=== PATIENT | female | born 1995 | race Asian ===

== ENCOUNTER 2016-07-05 11:35 | Emergency (ER) | payer OTHER ==
[2016-07-05 11:43] VITALS: BP 117/64; PULSE 75; TEMP 97.8; BMI 22.6
[2016-07-05 14:55] LABS: BASOPHIL 0.3 % (0-2.0); EOSINOPHIL 2.7 % (0-4.5); MCH 28.7 pg (25.7-33.7); MCHC 33.3 g/dl (32.0-36.0); MEAN CELL VOLUME 86.1 fl (80-96); MEAN PLT VOLUME 9.2 fl (7.5-11.1); NEUTROPHILS 62.1 % (42.8-82.8); PLATELET COUNT 248 K/MM3 (134-434); RDW 13.7 % (11.6-15.6)
[2016-07-05 15:17] LABS: URINE APPEARANCE CLEAR; URINE BILIRUBIN NEGATIVE (NEGATIVE); URINE BLOOD NEGATIVE (NEGATIVE); URINE COLOR LTYELLOW; URINE GLUCOSE (UA) NEGATIVE (NEGATIVE); URINE KETONE NEGATIVE (NEGATIVE); URINE LEUK ESTERASE NEGATIVE (NEGATIVE); URINE NITRITE NEGATIVE (NEGATIVE); URINE PROTEIN NEGATIVE (NEGATIVE); URINE UROBILINOGEN NEGATIVE E.U./dl (0.2-1.0)
--- NOTE | 2016-07-05 16:17 | PDOC ---
History of Present Illness <Nayla Espino - Last Filed: 07/05/16 20:39> - General History Source: Patient Exam Limitations: No Limitations - History of Present Illness Travel History: No Initial Comments: 07/05/16 14:09 21-year-old female presents to the ED with vaginal bleeding since yesterday. Patient states had her menses approximately 3 weeks ago and had a cervical biopsy done secondary to HPV which she states had minimal bleeding postoperatively and now concerned with the irregular bleeding and suprapubic cramping. Patient states no vaginal discharge prior to procedure, urinary complaints, back pain, abdominal distention, or fever. Patient states called her FINISHING RANGE SUPERVISOR who recommended she come to the ER since she states this is unlikely a postoperative complication since the procedure was 2 weeks ago. Timing/Duration: reports: constant Quality: reports: mild, cramping Abdominal Pain Onset Location: reports: suprapubic Pain Radiation: reports: no radiation Activities at Onset: reports: none Aggravating Factors: improves with: None Alleviating Factors: improves with: None <Brittany Lee - Last Filed: 07/07/16 07:35> - General Chief Complaint: Vaginal Bleeding Stated Complaint: VAGINAL BLEEDING Time Seen by Provider: 07/05/16 13:41 Past History <Nayla Espino - Last Filed: 07/05/16 20:39> - Past Medical History Suicide Attempt (Hx): No Other medical history: hpv - Reproductive History Is Patient Now?: No - Psycho/Social/Smoking Cessation Hx Anxiety: No Suicidal Ideation: No Smoking History: Never smoked Have you smoked in the past 12 months: No Information on smoking cessation initiated: No Hx Alcohol Use: No Drug/Substance Use Hx: No Substance Use Type: None Patient Lives Alone: No Lives with/in: parents <Brittany Lee - Last Filed: 07/07/16 07:35> - Past Medical History Allergies/Adverse Reactions: Allergies Allergy/AdvReac Type Severity Reaction Status Date / Time No Known Allergies Allergy Verified 07/05/16 11:39 Home Medications: Ambulatory Orders NK [No Known Home Medication] 01/04/16 Review of Systems - Review of Systems Able to Perform ROS?: Yes Constitutional: No: Symptoms Reported HEENTM: No: Symptoms Reported Respiratory: No: Symptoms reported Cardiac (ROS): No: Symptoms Reported ABD/GI: Yes: Abdominal cramping : Yes: Discharge (bloody) Musculoskeletal: No: Back Pain Integumentary: No: Symptoms Reported Neurological: No: Symptoms reported Endocrine: No: Symptoms Reported Hematologic/Lymphatic: No: Symptoms Reported <Brittany Lee - Last Filed: 07/07/16 07:35> *Physical Exam - Vital Signs Last Vital Signs Temp Pulse Resp BP Pulse Ox 97.8 F 75 18 117/64 100 07/05/16 11:39 07/05/16 11:39 07/05/16 11:39 07/05/16 11:39 07/05/16 11:39 <Nayla Espino - Last Filed: 07/05/16 20:39> - Vital Signs Last Vital Signs Temp Pulse Resp BP Pulse Ox 97.8 F 75 18 117/64 100 07/05/16 11:39 07/05/16 11:39 07/05/16 11:39 07/05/16 11:39 07/05/16 11:39 - Physical Exam General Appearance: Yes: Nourished, Appropriately Dressed. No: Apparent Distress HEENT: negative: Pale Conjunctivae Female Pelvic Exam: positive: cervical os closed (smooth pink cervix), vaginal bleeding (pinkish red discharge). negative: CMT, adnexal tenderness Gastrointestinal/Abdominal: positive: Soft, Tenderness (mild midsuprapubic) Musculoskeletal: negative: CVA Tenderness Extremity: positive: Normal Capillary Refill Integumentary: positive: Normal Color, Warm, Moist Neurologic: positive: Motor Strength 5/5 (ambulatory) <RosaBrittany - Last Filed: 07/07/16 07:35> ED Treatment Course - LABORATORY CBC & Chemistry Diagram: 07/05/16 14:45 - ADDITIONAL ORDERS Additional order review: Laboratory Results 07/05/16 07/05/16 07/05/16 16:08 16:08 15:00 Beta HCG, Quant 558.2 Urine Color Ltyellow Urine Appearance Clear Urine pH 8.0 D Ur Specific [place] 1.020 Urine Protein Negative Urine Glucose (UA) Negative Urine Ketones Negative Urine Blood Negative Urine Nitrite Negative Urine Bilirubin Negative Urine Urobilinogen Negative Ur Leukocyte Esterase Negative Urine HCG, Qual Positive Blood Type B POSITIVE Antibody Screen Negative 07/05/16 14:45 RBC 4.72 MCV 86.1 MCHC 33.3 RDW 13.7 MPV 9.2 Neutrophils % 62.1 Lymphocytes % 24.7 Monocytes % 10.2 Eosinophils % 2.7 Basophils % 0.3 <Nayla Espino - Last Filed: 07/05/16 20:39> - LABORATORY CBC & Chemistry Diagram: 07/05/16 14:45 - ADDITIONAL ORDERS Additional order review: Laboratory Results 07/05/16 15:00 Urine Color Ltyellow Urine Appearance Clear Urine pH 8.0 D Ur Specific [place] 1.020 Urine Protein Negative Urine Glucose (UA) Negative Urine Ketones Negative Urine Blood Negative Urine Nitrite Negative Urine Bilirubin Negative Urine Urobilinogen Negative Ur Leukocyte Esterase Negative Urine HCG, Qual Positive 07/05/16 14:45 RBC 4.72 MCV 86.1 MCHC 33.3 RDW 13.7 MPV 9.2 Neutrophils % 62.1 Lymphocytes % 24.7 Monocytes % 10.2 Eosinophils % 2.7 Basophils % 0.3 <Brittany Lee - Last Filed: 07/07/16 07:35> Medical Decision Making - Medical Decision Making 07/05/16 14:21 Patient with vaginal bleeding and mid suprapubic pain since yesterday. Patient states pain and bleeding is not like her menses denies any fever, nausea, abdominal distention, or dysuria. Patient does have history of HPV, herpes and is sexually active. Patient ordered for labs including chlamydia and gonorrhea and urine . 07/05/16 16:54 Laboratory Tests 07/05/16 07/05/16 07/05/16 14:45 15:00 15:00 WBC 8.0 Hgb 13.6 Hct 40.7 Neutrophils % 62.1 Urine Ketones Negative Urine Nitrite Negative Ur Leukocyte Esterase Negative Urine HCG, Qual Positive Chlamydia Competition Pending N. gonorrhoeae (AKOSUA) Pending Pt ordered for type ad screen along with beta hcg 07/05/16 18:10 Called the lab to find out where the beta hCG is and states unable to find the specimen and requesting a re-send of the yellow top. Patient will be sent to ultrasound in the meantime 07/05/16 19:06 If ultrasound is negative patient does need to return here in 2 days for repeat beta hCG since her OBGYN is on vacation. If ultrasound does show significant findings we will contact robotic maintenance technician prison guard supervisor since her FINISHING RANGE SUPERVISOR Dr. Godwin is away. Patient made aware of plan and agrees. <Brittany Lee - Last Filed: 07/07/16 07:35> *DC/Admit/Observation/Transfer - Discharge Dispostion Admit: No <Nayla Espino - Last Filed: 07/05/16 20:39> <Brittany Lee - Last Filed: 07/07/16 07:35> Diagnosis at time of Disposition: Ovarian cyst Qualifiers: Laterality: bilateral Qualified Code(s): N83.20 - Unspecified ovarian cysts Abdominal pain Qualifiers: Abdominal location: lower abdomen, unspecified Qualified Code(s): R10.30 - Lower abdominal pain, unspecified - Discharge Dispostion Disposition: HOME Condition at time of disposition: Stable - Referrals Referrals: Magdalena Torres MD [Primary Care Provider] - - Patient Instructions Printed Discharge Instructions: DI for Ovarian Cyst, Human Chorionic Gonadotropin Additional Instructions: FOLLOW UP WITH FINISHING RANGE SUPERVISOR EARLY THIS WEEK IF POSSIBLE, OR RETURN TO THIS ER FOR BLOOD DRAW (BETA HCG) TO DETERMINE WHETHER LEVELS ARE TRENDING UP OR DOWN. RETURN IF WORSENING OF SYMPTOMS FOR FURTHER EVALUATION. Print Language: CROATIAN
--- NOTE | 2016-07-05 16:35 | PDOC ---
*Physical Exam - Vital Signs Last Vital Signs Temp Pulse Resp BP Pulse Ox 97.8 F 75 18 117/64 100 07/05/16 11:39 07/05/16 11:39 07/05/16 11:39 07/05/16 11:39 07/05/16 11:39 ED Treatment Course - LABORATORY CBC & Chemistry Diagram: 07/05/16 14:45 - ADDITIONAL ORDERS Additional order review: Laboratory Results 07/05/16 15:00 Urine Color Ltyellow Urine Appearance Clear Urine pH 8.0 D Ur Specific [place] 1.020 Urine Protein Negative Urine Glucose (UA) Negative Urine Ketones Negative Urine Blood Negative Urine Nitrite Negative Urine Bilirubin Negative Urine Urobilinogen Negative Ur Leukocyte Esterase Negative Urine HCG, Qual Positive 07/05/16 14:45 RBC 4.72 MCV 86.1 MCHC 33.3 RDW 13.7 MPV 9.2 Neutrophils % 62.1 Lymphocytes % 24.7 Monocytes % 10.2 Eosinophils % 2.7 Basophils % 0.3 Medical Decision Making - Medical Decision Making 07/05/16 16:35 Pt seen by Midlevel Provider under my direct supervision Ancillary studies reviewed I agree with plan as outlined by Midlevel Provider *DC/Admit/Observation/Transfer Diagnosis at time of Disposition: Ovarian cyst, Abdominal pain - Discharge Dispostion Disposition: HOME Condition at time of disposition: Stable - Referrals Referrals: Magdalena Torres MD [Primary Care Provider] - - Patient Instructions Printed Discharge Instructions: Human Chorionic Gonadotropin, DI for Ovarian Cyst Additional Instructions: FOLLOW UP WITH MACHINE OPERATOR ASSISTANT EARLY THIS WEEK IF POSSIBLE, OR RETURN TO THIS ER FOR BLOOD DRAW (BETA HCG) TO DETERMINE WHETHER LEVELS ARE TRENDING UP OR DOWN. RETURN IF WORSENING OF SYMPTOMS FOR FURTHER EVALUATION. Print Language: ROMANIAN
== END 2016-07-05 21:12 | disposition home or self-care (01) ==
LOC: JER 11:35
DX: N83.292 Other ovarian cyst, left side (principal); N83.291 Other ovarian cyst, right side
CPT/HCPCS: 36415; 76801-TC; 81003; 84702; 84703; 85025; 86850; 86900; 86901; 87081; 87491; 87591; 99284-25

== ENCOUNTER 2016-08-02 19:51 | Emergency (ER) | payer OTHER ==
--- NOTE | 2016-08-02 19:55 | PDOC ---
Rapid Medical Evaluation Time Seen by Provider: 08/02/16 19:54 Medical Evaluation: Allergies Allergy/AdvReac Type Severity Reaction Status Date / Time No Known Allergies Allergy Verified 07/05/16 11:39 08/02/16 19:55 21 year old female seen here 07/05 with abdominal pain and vaginal bleeding, found to have bhcg 552; u/s showed left ovarian complex cyst vs corpus luteum cyst and thickened endometrial strip. Patient was instructed to return in 2 days for repeat beta but did not. Has not had a period and wants to know if she is still . -Beta hcg -To FT for further evaluation
[2016-08-02 19:59] VITALS: BP 107/67; PULSE 79; TEMP 98.1; BMI 21.9
--- NOTE | 2016-08-02 20:40 | PDOC ---
History of Present Illness - General Chief Complaint: Revisit, Lab Variance Stated Complaint: REVISIT Time Seen by Provider: 08/02/16 19:54 History Source: Patient Exam Limitations: No Limitations - History of Present Illness Initial Comments: 08/02/16 20:35 Chief complaint: Here to find out if she is still Of present illness: Patient is a 21-year-old female with a history of herpes genital and HPV here to find out whether or not she continues to be . Patient was seen here on 07/05/16 due to having vaginal bleeding since the day before. Patient also had had a biopsy 2 weeks prior to that date of her cervix due to having HPV and abnormal cells on cervix. Patient did not follow-up with CRYSTAL MOUNTER. Patient denies having any further vaginal bleeding has not had her menstrual cycle since. Patient reports that she has not been sexually active since prior to coming here on 07/05/2016. Beta hCG on 07/05/16 was 558.2. Patient denies any vaginal discharge or any pelvic pain. ultrasound that showed the left ovary complex cyst versus corpus luteum cysts with thickened endometrial stripe on 07/05/16. 08/02/16 20:37 08/02/16 20:41 Past History - Past Medical History Allergies/Adverse Reactions: Allergies Allergy/AdvReac Type Severity Reaction Status Date / Time No Known Allergies Allergy Verified 08/02/16 19:58 Home Medications: Ambulatory Orders NK [No Known Home Medication] 01/04/16 Suicide Attempt (Hx): No Other medical history: herpes genitalia, HPV cervical - Psycho/Social/Smoking Cessation Hx Anxiety: No Suicidal Ideation: No Smoking History: Never smoked Have you smoked in the past 12 months: No Information on smoking cessation initiated: No Hx Alcohol Use: No Drug/Substance Use Hx: No Substance Use Type: None Review of Systems - Review of Systems Able to Perform ROS?: Yes Constitutional: No: Symptoms Reported HEENTM: No: Symptoms Reported Respiratory: No: Symptoms reported Cardiac (ROS): No: Symptoms Reported ABD/GI: No: Symptoms Reported : Yes: Other (+ test on 07/05/16 with vaginal bleeding no further bleeding, no discharge, ) Musculoskeletal: No: Symptoms Reported Integumentary: No: Symptoms Reported Neurological: No: Symptoms reported *Physical Exam - Vital Signs Last Vital Signs Temp Pulse Resp BP Pulse Ox 98.1 F 79 17 107/67 100 08/02/16 19:56 08/02/16 19:56 08/02/16 19:56 08/02/16 19:56 08/02/16 19:56 - Physical Exam Comments: 08/02/16 20:40 General Appearance: Yes: Appropriately Dressed Respiratory/Chest: positive: Lungs Clear, Normal Breath Sounds. negative: Chest Tender, Respiratory Distress Cardiovascular: positive: Regular Rhythm, Regular Rate, S1, S2 Gastrointestinal/Abdominal: positive: Normal Bowel Sounds, Soft. negative: Tender, Organomegaly, Increased Bowel Sounds, Decreased BS, Protuberent, Distended, Guarding, Rebound, Tenderness, Hernia, Mass, Hepatomegaly, Spleenomegaly Integumentary: positive: Normal Color Neurologic: positive: Alert, Normal Response, Responsive Medical Decision Making - Medical Decision Making 08/02/16 20:38 Patient is a 21-year-old female with a history of herpes genital and HPV here to find out whether or not she continues to be . Patient was seen here on 07/05/16 due to having vaginal bleeding since the day before. Patient also had had a biopsy 2 weeks prior to that date of her cervix due to having HPV and abnormal cells on cervix. Patient did not follow-up with CRYSTAL MOUNTER. Patient denies having any further vaginal bleeding has not had her menstrual cycle since. Patient reports that she has not been sexually active since prior to coming here on 07/05/2016. Beta hCG on 07/05/16 was 558.2. Patient denies any vaginal discharge or any pelvic pain. 08/02/16 20 r/o continued pLAN beta hcg Laboratory Tests 08/02/16 20:00 Beta HCG, Quant < 1.0 follow up with rendering equipment tender as soon as possible *DC/Admit/Observation/Transfer Diagnosis at time of Disposition: Negative test - Discharge Dispostion Disposition: HOME Condition at time of disposition: Stable - Patient Instructions Additional Instructions: Must follow up with your senior medical billing specialist as soon as possible for further evaluation and to discuss contraception Patient voiced understanding of discharge instructions and all questions were answered
== END 2016-08-02 21:23 | disposition home or self-care (01) ==
LOC: JERFT 19:51
DX: Z32.02 Encounter for pregnancy test, result negative (principal)
CPT/HCPCS: 36415; 84702; 99281-25

== ENCOUNTER 2016-12-07 14:51 | Emergency (ER) | payer OTHER ==
[2016-12-07 15:05] VITALS: BMI 22.4
--- NOTE | 2016-12-07 15:34 | PDOC ---
History of Present Illness - General Chief Complaint: Pain Stated Complaint: ABD PAIN Time Seen by Provider: 12/07/16 15:33 History Source: Patient Exam Limitations: No Limitations - History of Present Illness Initial Comments: 12/07/16 15:34 Patient is an otherwise healthy 21 year old female who was referred to the ED by her PCP for 5 days of RUQ/RLQ abdominal pain and diarrhea. The pain started abruptly 5 days ago while patient was vacationing in [place] and has been sharp, crampy and constant, 7-8/10 at the peak and relieved with Advil. Two days ago it was associated with a high subjective fever for one night. Otherwise patient denies fever, recent illnesses, sick contacts, nausea, vomiting and dysurea. Endorses feeling bloated and a loss of appetite. Endorses eating oysters and raw seafood and significant EtOH consumption recently. Patient is sexually active with one partner. LMP was two weeks ago and unchanged. PCP: Dr. Balbuena Past History - Past Medical History Allergies/Adverse Reactions: Allergies Allergy/AdvReac Type Severity Reaction Status Date / Time No Known Allergies Allergy Verified 12/07/16 15:05 Home Medications: Ambulatory Orders NK [No Known Home Medication] 01/04/16 Suicide Attempt (Hx): No Other medical history: NONE - Psycho/Social/Smoking Cessation Hx Anxiety: No Suicidal Ideation: No Smoking History: Current every day smoker Have you smoked in the past 12 months: No Number of Cigarettes Smoked Daily: 2 Information on smoking cessation initiated: Yes 'Breaking Loose' booklet given: 12/07/16 Hx Alcohol Use: Yes (SOCIAL) Drug/Substance Use Hx: No Substance Use Type: None Review of Systems - Review of Systems Able to Perform ROS?: Yes Comments:: 12/08/16 06:16 Endorses 1 night of subjective fever two days ago Denies chills Denies sore throat, cough and shortness of breath Denies chest pain and palpitations Endorses abdominal pain in the RUQ/RLQ>suprapubic/Epigastric Endorses brown watery diarrhea with no blood or mucus Denies Nausea and vomiting Denies dysurea and changes in urine quality Denies MS pain, joint pain, skin changes, rashes, bruising Is the patient limited Citizen Of [place] proficient: No *Physical Exam - Vital Signs Last Vital Signs Temp Pulse Resp BP Pulse Ox 98.4 F 89 20 113/62 100 07/26/17 15:03 12/07/16 15:03 12/07/16 15:03 12/07/16 15:03 12/07/16 15:03 - Physical Exam General Appearance: Yes: Nourished, Appropriately Dressed. No: Apparent Distress HEENT: positive: Other (NCAT, PERRLA, EOMI, non icterus, non erythamatous moist oral mucosa, no congestion) Neck: positive: Supple. negative: Tender, Lymphadenopathy (R), Lymphadenopathy (L) Respiratory/Chest: positive: Lungs Clear, Normal Breath Sounds. negative: Respiratory Distress Cardiovascular: positive: Regular Rate. negative: Regular Rhythm Gastrointestinal/Abdominal: positive: Normal Bowel Sounds, Tender (RUQ>RLQ> Epigastric>suprapubic), Flat, Soft, Other (Negative rovsig, negative brandt). negative: Distended, Guarding, Rebound, Mass Musculoskeletal: positive: CVA Tenderness (R). negative: CVA Tenderness (L) Extremity: positive: Normal Capillary Refill, Normal Inspection, Normal Range of Motion Integumentary: positive: Normal Color, Dry, Warm. negative: Jaundice, Petechiae , Rash, Ecchymosis Neurologic: positive: bank teller II-XII NML intact, Fully Oriented, Alert, Normal Mood/ Affect, Motor Strength 5/5 ED Treatment Course - LABORATORY CBC & Chemistry Diagram: 12/07/16 16:45 12/07/16 16:45 Medical Decision Making - Medical Decision Making 12/07/16 15:34 patient is a 21 year old female with 5 days of right sided abdominal pain. Patient also has history of palpitations and irregular heart auscultation Ddx includes but is not limited to appendicitis, biliary disease, pancreatitis, hepatitis, ectopic , PID, ovarian cyst, UTI, colitis. HCG CBC, CMP, Lipase, UA Chlamydia/Gonorrhea PCR amp Consider CT abdomen and pelvis based on results Monitor and reevaluate 12/07/16 17:22 CBC WBC 11.3 K/mm3 (4.0-10.0) H D 12/07/16 16:45 RBC 4.55 M/mm3 (3.60-5.2) 12/07/16 16:45 Hgb 13.1 GM/dL (10.7-15.3) 12/07/16 16:45 Hct 39.5 % (32.4-45.2) 12/07/16 16:45 MCV 86.8 fl (80-96) 12/07/16 16:45 MCH 28.7 pg (25.7-33.7) 12/07/16 16:45 MCHC 33.1 g/dl (32.0-36.0) 12/07/16 16:45 RDW 12.8 % (11.6-15.6) 12/07/16 16:45 Plt Count 359 K/MM3 (134-434) D 12/07/16 16:45 MPV 8.5 fl (7.5-11.1) 12/07/16 16:45 Neutrophils % 79.3 % (42.8-82.8) D 12/07/16 16:45 Lymphocytes % 10.4 % (8-40) D 12/07/16 16:45 Monocytes % 9.5 % (3.8-10.2) 12/07/16 16:45 Eosinophils % 0.5 % (0-4.5) D 12/07/16 16:45 Basophils % 0.3 % (0-2.0) 12/07/16 16:45 Mild leukocytosis, concerning in context of history for acute appendicitis HCG negative rules out ectopic, clears patient for CT 12/07/16 18:53 CMP Sodium 137 mmol/L (136-145) 12/07/16 16:45 Potassium 4.1 mmol/L (3.5-5.1) 12/07/16 16:45 Chloride 102 mmol/L (98-107) 12/07/16 16:45 Carbon Dioxide 31 mmol/L (21-32) 12/07/16 16:45 Anion Gap 4 (8-16) L 12/07/16 16:45 BUN 10 mg/dL (7-18) 12/07/16 16:45 Creatinine 0.7 mg/dL (0.55-1.02) 12/07/16 16:45 Creat Clearance w eGFR > 60 (>60) 12/07/16 16:45 Random Glucose 80 mg/dL (74-106) 12/07/16 16:45 Calcium 9.2 mg/dL (8.5-10.1) 12/07/16 16:45 Total Bilirubin 0.2 mg/dL (0.2-1.0) 12/07/16 16:45 AST 13 U/L (15-37) L 12/07/16 16:45 ALT 20 U/L (12-78) 12/07/16 16:45 Alkaline Phosphatase 65 U/L (45-117) 12/07/16 16:45 Total Protein 7.3 g/dl (6.4-8.2) 12/07/16 16:45 Albumin 3.4 g/dl (3.4-5.0) 12/07/16 16:45 Lipase 134 U/L (73-393) 12/07/16 16:45 non concerning CMP, LFT wnl Urine Test Results Urine Color Yellow 12/07/16 16:19 Urine Appearance Clear 12/07/16 16:19 Urine pH 7.0 (5.0-8.0) 12/07/16 16:19 Urine Protein Negative (NEGATIVE) 12/07/16 16:19 Urine Glucose (UA) Negative (NEGATIVE) 12/07/16 16:19 Urine Ketones Negative (NEGATIVE) 12/07/16 16:19 Urine Blood Negative (NEGATIVE) 12/07/16 16:19 Urine Nitrite Negative (NEGATIVE) 12/07/16 16:19 Urine Bilirubin Negative (NEGATIVE) 12/07/16 16:19 Ur Leukocyte Esterase Trace (NEGATIVE) 12/07/16 16:19 Trace LE Patient completed PO contrast, awaiting CT 12/07/16 18:59 Signed out patient to Dr. Lesa Cohen *DC/Admit/Observation/Transfer Diagnosis at time of Disposition: Ovarian cyst Abdominal pain Qualifiers: Abdominal location: unspecified location Qualified Code(s): R10.9 - Unspecified abdominal pain - Discharge Dispostion Disposition: HOME Condition at time of disposition: Stable - Referrals Referrals: Dodie Balbuena MD [Primary Care Provider] - - Patient Instructions Printed Discharge Instructions: DI for Ovarian Cyst Additional Instructions: You were seen in the ER today for abdominal pain. You had a slightly elevated white blood cell count, but this could mean one of many things including a stress response to the pain you have had for the past few days. Your lab work was otherwise unconcerning, and you did not have a bladder infection. We took some swabs from your pelvic exam and will call you if there are any abnormal results (they take time to come back). We did a ultrasound and a CT of your abdomen and pelvis, and there is a small cyst on your right ovary, but otherwise the study appeared normal. Please take ibuprofen or another NSAID for the pain, and follow up with your regular provider or return to the ER for any further emergency concerns such as fever which will not go away with Tylenol, severe abdominal pain, or new vaginal discharge.
--- NOTE | 2016-12-07 15:53 | PDOC ---
Attending Attestation - Resident Resident Name: Adelfo Mishra - ED Attending Attestation I have performed the following: I have examined & evaluated the patient, The case was reviewed & discussed with the resident, I agree w/resident's findings & plan, Exceptions are as noted - HPI HPI: 21 yo F no significant past medical history presents with RUQ/RLQ abdominal pain and diarrhea. She states that the pain started 5 days ago while she was in [place], but has been progressively worsening since that time. She denies fever, chills, N/V, dysuria. She has had multiple episodes of watery stools. She states that she ate raw shellfish and seafood on her trip. - Physicial Exam PE: GENERAL: Awake, alert, and fully oriented, in no acute distress HEAD: No signs of trauma EYES: PERRLA, EOMI, sclera anicteric, conjunctiva clear ENT: Auricles normal inspection, hearing grossly normal, nares patent, oropharynx clear without exudates. Moist mucosa NECK: Normal ROM, supple, no lymphadenopathy, JVD, or masses LUNGS: Breath sounds equal, clear to auscultation bilaterally. No wheezes, and no crackles HEART: Regular rate and rhythm, normal S1 and S2, no murmurs, rubs or gallops ABDOMEN: Soft, +RUQ/RLQ tenderness with guarding, normoactive bowel sounds. No rebound. No masses EXTREMITIES: Normal range of motion, no edema. No clubbing or cyanosis. No cords, erythema, or tenderness NEUROLOGICAL: Cranial nerves II through XII grossly intact. Normal speech, normal gait SKIN: Warm, Dry, normal turgor, no rashes or lesions noted. - Medical Decision Making Patient with RUQ/RLQ tenderness. DDx includes UTI, kidney stone - although no urinary symptoms, making these less likely. More likely to be appendicitis vs jonathan. Exam with tenderness in multiple locations, making it more complicated to evaluate. Will obtain CT a/p to further evaluate.
[2016-12-07 16:53] LABS: BASOPHIL 0.3 % (0-2.0); EOSINOPHIL 0.5 % (0-4.5); MCH 28.7 pg (25.7-33.7); MCHC 33.1 g/dl (32.0-36.0); MEAN CELL VOLUME 86.8 fl (80-96); MEAN PLT VOLUME 8.5 fl (7.5-11.1); NEUTROPHILS 79.3 % (42.8-82.8); PLATELET COUNT 359 K/MM3 (134-434); RDW 12.8 % (11.6-15.6); WHITE BLOOD COUNT 11.3 K/mm3 (4.0-10.0)
[2016-12-07 17:17] LABS: ALBUMIN 3.4 g/dl (3.4-5.0); ALK PHOS 65 U/L (45-117); ANION GAP 4 (8-16); BILIRUBIN,TOTAL 0.2 mg/dL (0.2-1.0); CALCIUM 9.2 mg/dL (8.5-10.1); CO2 31 mmol/L (21-32); CREATININE 0.7 mg/dL (0.55-1.02); GLUCOSE,RANDOM 80 mg/dL (74-106); SGOT/AST 13 U/L (15-37); SGPT/ALT 20 U/L (12-78); TOT PROT 7.3 g/dl (6.4-8.2)
[2016-12-07 17:22] LABS: URINE APPEARANCE CLEAR; URINE BILIRUBIN NEGATIVE (NEGATIVE); URINE BLOOD NEGATIVE (NEGATIVE); URINE COLOR YELLOW; URINE GLUCOSE (UA) NEGATIVE (NEGATIVE); URINE KETONE NEGATIVE (NEGATIVE); URINE LEUK ESTERASE TRACE (NEGATIVE); URINE NITRITE NEGATIVE (NEGATIVE); URINE PROTEIN NEGATIVE (NEGATIVE)
[2016-12-07 18:55] LABS: URINE MUCUS RARE; URINE RBC 1 /hpf (0-3); URINE WBC 6 /hpf (3-5)
--- NOTE | 2016-12-07 19:09 | PDOC ---
*Physical Exam - Vital Signs Last Vital Signs Temp Pulse Resp BP Pulse Ox 98.4 F 89 20 113/62 100 12/07/16 15:03 12/07/16 15:03 12/07/16 15:03 12/07/16 15:03 12/07/16 15:03 ED Treatment Course - LABORATORY CBC & Chemistry Diagram: 12/07/16 16:45 12/07/16 16:45 - ADDITIONAL ORDERS Additional order review: Laboratory Results 12/07/16 12/07/16 12/07/16 16:45 16:45 16:45 Sodium 137 Potassium 4.1 Chloride 102 Carbon Dioxide 31 Anion Gap 4 L BUN 10 Creatinine 0.7 Creat Clearance w eGFR > 60 Random Glucose 80 Calcium 9.2 Total Bilirubin 0.2 AST 13 L ALT 20 Alkaline Phosphatase 65 Total Protein 7.3 Albumin 3.4 Lipase 134 Urine Color Urine Appearance Urine pH Urine Protein Urine Glucose (UA) Urine Ketones Urine Blood Urine Nitrite Urine Bilirubin Urine Urobilinogen Ur Leukocyte Esterase Urine HCG, Qual Negative 12/07/16 16:19 Sodium Potassium Chloride Carbon Dioxide Anion Gap BUN Creatinine Creat Clearance w eGFR Random Glucose Calcium Total Bilirubin AST ALT Alkaline Phosphatase Total Protein Albumin Lipase Urine Color Yellow Urine Appearance Clear Urine pH 7.0 Urine Protein Negative Urine Glucose (UA) Negative Urine Ketones Negative Urine Blood Negative Urine Nitrite Negative Urine Bilirubin Negative Urine Urobilinogen 2.0 H Ur Leukocyte Esterase Trace Urine HCG, Qual 12/07/16 16:45 RBC 4.55 MCV 86.8 MCHC 33.1 RDW 12.8 MPV 8.5 Neutrophils % 79.3 D Lymphocytes % 10.4 D Monocytes % 9.5 Eosinophils % 0.5 D Basophils % 0.3 Medical Decision Making - Medical Decision Making 12/07/16 19:03 Assumed care from excellent Dr. Adelfo Mishra. 21 yo female who is stable. Pt noted recent drinking, 5d right and- and mid-abdominal pain, diarrhea, subjective fever. Exam with diffuse tenderness, CVA tenderness. WBC 11.3, UA not concerning, now waiting for CT with PO contrast. *DC/Admit/Observation/Transfer Diagnosis at time of Disposition: Ovarian cyst Abdominal pain Qualifiers: Abdominal location: unspecified location Qualified Code(s): R10.9 - Unspecified abdominal pain - Discharge Dispostion Disposition: HOME Condition at time of disposition: Stable Admit: No - Patient Instructions Printed Discharge Instructions: DI for Ovarian Cyst Additional Instructions: You were seen in the ER today for abdominal pain. You had a slightly elevated white blood cell count, but this could mean one of many things including a stress response to the pain you have had for the past few days. Your lab work was otherwise unconcerning, and you did not have a bladder infection. We took some swabs from your pelvic exam and will call you if there are any abnormal results (they take time to come back). We did a ultrasound and a CT of your abdomen and pelvis, and there is a small cyst on your right ovary, but otherwise the study appeared normal. Please take ibuprofen or another NSAID for the pain, and follow up with your regular provider or return to the ER for any further emergency concerns such as fever which will not go away with Tylenol, severe abdominal pain, or new vaginal discharge. - Attestations Physician Attestion: 12/07/16 21:43 I, Dr. Lesa Cruz, attest that this document has been prepared under my direction and personally reviewed by me in its entirety. I further attest, that it accurately reflects all work, treatment, procedures and medical decision -making performed by me.
[2016-12-07 21:48] VITALS: BP 102/65; PULSE 82; TEMP 98.6
--- NOTE | 2016-12-08 11:57 | EKG ---
Test Reason : Blood Pressure : / mmHG Vent. Rate : 073 BPM Atrial Rate : 073 BPM P-R Int : 120 ms QRS Dur : 086 ms QT Int : 366 ms P-R-T Axes : 061 067 052 degrees QTc Int : 403 ms NORMAL SINUS RHYTHM NORMAL ECG NO PREVIOUS ECGS AVAILABLE Confirmed by JOSSELIN ANDERSON MD ([id number]) on 12/08/2016 11:56:50 AM Referred By: Confirmed By:JOSSELIN ANDERSON MD
== END 2016-12-07 22:02 | disposition home or self-care (01) ==
LOC: JER 14:51
DX: N83.201 Unspecified ovarian cyst, right side (principal)
CPT/HCPCS: 36415; 74177-TC; 80053; 81003; 81015; 83690; 84703; 85025; 87491; 87591; 93005; 93010; 99283-25

== ENCOUNTER 2016-12-29 11:15 | Emergency (ER) | payer OTHER ==
[2016-12-29 11:24] VITALS: BP 99/63; PULSE 79; TEMP 98; BMI 21.6
[2016-12-29] MEDS ORDERED: AZITHROMYCIN 1 GM PACKET PO ONE (11:55)
[2016-12-29] MEDS ORDERED: AZITHROMYCIN 1 GM PACKET ONE (12:00)
--- NOTE | 2016-12-29 12:04 | PDOC ---
History of Present Illness - General Chief Complaint: Revisit, Lab Variance Stated Complaint: FOLLOW-UP Time Seen by Provider: 12/29/16 11:27 History Source: Patient Exam Limitations: No Limitations - History of Present Illness Initial Comments: 12/29/16 11:56 Patient return to emergency department per request for treatment of positive gonorrhea culture. Was seen on December 07 for abdominal pain, told had a small ovarian cyst but no treatment was provided as cultures had not yet been resulted. Patient went away to [place] and has just recently returned fine multiple messages to return calls. Patient states has felt well, has had no discharge, fevers, further abdominal pain. States has had 2 sexual partners the past 2 months both of them without protected sex. One partner is someone she is able to notify the other partner is someone she does not know and would be unable to identify or locate. Denies any history of STDs, has regular pelvic exams and last one was a few months ago which was normal. Denies fever, URI symptoms, abdominal pain, dysuria or any bowel problems. 12/29/16 16:54 Timing/Duration: unsure Severity: mild, moderate Associated Symptoms: reports: denies symptoms Past History - Travel Traveled outside of the country in the last 30 days: No Close contact w/someone who was outside of country & ill: No - Past Medical History Allergies/Adverse Reactions: Allergies Allergy/AdvReac Type Severity Reaction Status Date / Time No Known Allergies Allergy Verified 12/29/16 11:20 Home Medications: Ambulatory Orders NK [No Known Home Medication] 01/04/16 Suicide Attempt (Hx): No Other medical history: NONE - Psycho/Social/Smoking Cessation Hx Anxiety: No Suicidal Ideation: No Smoking History: Never smoked Have you smoked in the past 12 months: No Number of Cigarettes Smoked Daily: 2 Information on smoking cessation initiated: No 'Breaking Loose' booklet given: 12/07/16 Hx Alcohol Use: No Drug/Substance Use Hx: No Substance Use Type: None Review of Systems - Review of Systems Able to Perform ROS?: Yes Is the patient limited Tajik proficient: Yes Constitutional: Yes: See HPI. No: Symptoms Reported, Fever, Malaise HEENTM: No: Symptoms Reported Respiratory: Yes: See HPI. No: Symptoms reported Cardiac (ROS): Yes: See HPI ABD/GI: No: Symptoms Reported : No: Symptoms Reported Musculoskeletal: No: Symptoms Reported Integumentary: No: Symptoms Reported Neurological: Yes: Symptoms reported All Other Systems: Reviewed and Negative *Physical Exam - Vital Signs Last Vital Signs Temp Pulse Resp BP Pulse Ox 98.0 F 79 18 99/63 100 12/29/16 11:21 12/29/16 11:21 12/29/16 11:21 12/29/16 11:21 12/29/16 11:21 - Physical Exam General Appearance: Yes: Nourished, Appropriately Dressed. No: Apparent Distress HEENT: positive: ERIKA, Normal ENT Inspection, TMs Normal, Pharynx Normal Neck: positive: Supple. 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 Patient understands chlamydia culture was -2 weeks ago unable to obtain results of new chlamydia culture therefore will treat. Patient 's RPR was negative, was negative. Has +3 leukocyte esterase but without any urinary tract infection symptoms including fevers, abdominal pain, discharge or dysuria will hold and evaluate culture. Patient will call in 2 days for that result. Has appointment to see her CARDIAC CATH LAB RADIOLOGY TECHNOLOGIST doctor tomorrow with all information received today and will have further testing including HIV herpes and any other pelvic exam deemed necessary. Given lengthy discussion regarding safe sexual practices and need to discuss this positive result with all of her partners possible. 12/29/16 16:56 12/29/16 16:56 *DC/Admit/Observation/Transfer Diagnosis at time of Disposition: STD (female) - Discharge Dispostion Disposition: HOME Condition at time of disposition: Stable Admit: No - Referrals Referrals: Magdalena Torres MD [Primary Care Provider] - - Patient Instructions Printed Discharge Instructions: DI for Gonorrhea Additional Instructions: You been treated today with azithromycin 1 g by mouth for treatment of chlamydia You have been treated with Rocephin 250 mg injection for treatment of gonorrhea Your RPR= Syphilis testing was NEGATIVE Your test NEGATIVE . Always use condoms with the partners Followup with CARDIAC CATH LAB RADIOLOGY TECHNOLOGIST in one week for reevaluation and retesting. Encouraged HIV testing at that visit. Call in 2 days for results of urine culture- Birgit [phone] - Post Discharge Activity Work/School Note: Back to Work
[2016-12-29] MEDS ORDERED: LIDOCAINE HCL 1%, 10 MG/ML (20ML VIAL) ONE (12:24)
[2016-12-29 12:38] LABS: URINE APPEARANCE SLCLOUDY; URINE BILIRUBIN NEGATIVE (NEGATIVE); URINE BLOOD NEGATIVE (NEGATIVE); URINE COLOR YELLOW; URINE GLUCOSE (UA) NEGATIVE (NEGATIVE); URINE KETONE NEGATIVE (NEGATIVE); URINE NITRITE NEGATIVE (NEGATIVE); URINE PROTEIN NEGATIVE (NEGATIVE); URINE UROBILINOGEN NEGATIVE mg/dL (0.2-1.0)
[2016-12-29 12:48] LABS: URINE LEUK ESTERASE 3+ (NEGATIVE)
[2016-12-29 12:54] LABS: URINE MUCUS RARE; URINE RBC 1 /hpf (0-3); URINE WBC 2 /hpf (3-5)
== END 2016-12-29 13:10 | disposition home or self-care (01) ==
LOC: JERFT 11:15
DX: A54.9 Gonococcal infection, unspecified (principal)
CPT/HCPCS: 36415; 81003; 81015; 84703; 86593; 87491; 87591; 99281-25

== ENCOUNTER 2018-05-06 12:54 | Emergency (ER) | payer OTHER ==
[2018-05-06 12:57] VITALS: BP 96/56; PULSE 74; TEMP 97.9; BMI 22.4
--- NOTE | 2018-05-06 13:39 | PDOC ---
History of Present Illness - General Chief Complaint: Pain Stated Complaint: ABD PAIN Time Seen by Provider: 05/06/18 13:14 History Source: Patient Exam Limitations: No Limitations - History of Present Illness Initial Comments: 05/06/18 13:39 Patient is a 22 year old female with no significant PMHx who presents to the emergency department for diffuse, nonradiating, sharp lower abdominal pain that started 1.5 weeks ago. Patient reports the pain is intermittent happening only twice a day and currently does not have pain. Patient reports associated symptoms of nausea, fatigue, fever with Tmax 100.0 F and two episodes of nonbloody nonbilious vomiting, once on Monday (05/02/18) and then again Monday (05/04/18). There are no alleviating or exacerbating factors. Patient is sexually active with a partner but does not take control Unsure when her LMP was but reports it was beginning of April Reports having normal periods every month lasting 4-6 days Age of menarche 10 Follows up with OBGYN, Dr. Godwin, and had blood work for STD's last week, which was negative Otherwise, patient denies chills, diarrhea, melena, hematochezia, hematemesis, hematuria, vaginal bleeding or discharge, chest pain, palpitations, dizziness, loss of consciousness. PCP: Dr. Magdalena Olmedo/Dr. Balbuena PMHx: Denies PSHx: Denies Social Hx: Denies drug use Denies smoking Social drinking Family Hx: Denies Allergies: NKDA Past History - Past Medical History Allergies/Adverse Reactions: Allergies Allergy/AdvReac Type Severity Reaction Status Date / Time No Known Allergies Allergy Verified 10/31/17 20:41 Home Medications: Ambulatory Orders NK [No Known Home Medication] 01/04/16 COPD: No - Suicide/Smoking/Psychosocial Hx Smoking History: Never smoked Have you smoked in the past 12 months: No Number of Cigarettes Smoked Daily: 2 'Breaking Loose' booklet given: 12/07/16 Hx Alcohol Use: Yes (social) Drug/Substance Use Hx: No Substance Use Type: None Abd/GI Specific PMHX - Complaint Specific PMHX Colitis: No Diverticulitis: No Gall Bladder Disease: No GERD: No Hepatitis: No Irritable Bowel Synd (IBS): No Pancreatitis: No GI Ulcer Disease: No Review of Systems - Review of Systems Constitutional: Yes: Fever, Loss of Appetite, Malaise. No: Chills, Diaphoresis , Night Sweats, Weakness HEENTM: No: Blurred Vision, Nose Congestion, Tinnitus, Nose Bleeding Respiratory: No: Cough, Orthopnea, Shortness of Breath, SOB with Exertion, SOB at Rest, Wheezing, Productive cough Cardiac (ROS): No: Chest Pain, Edema, Irregular Heart Rate, Lightheadedness, Palpitations ABD/GI: Yes: Constipated, Nausea, Poor Fluid Intake, Vomiting, Abdominal cramping. No: Abdominal Distended, Abd. Pain w/ defecation, Diarrhea, Difficulty Swallowing, Poor Appetite, Rectal Bleeding, Indigestion : No: Burning, Dysuria, Discharge, Frequency, Flank Pain, Hematuria Musculoskeletal: No: Back Pain, Joint Pain, Joint Swelling, Muscle Pain Integumentary: No: Bruising, Dryness, Erythema, Flushing Neurological: No: Headache, Numbness, Paresthesia, Seizure, Tingling, Tremors, Weakness Psychiatric: No: Anxiety, Depression, Frequent Crying Endocrine: No: Flushing, Intolerance to Cold, Intolerance to Heat Hematologic/Lymphatic: No: Anemia, Blood Clots, Easy Bleeding *Physical Exam - Vital Signs Last Vital Signs Temp Pulse Resp BP Pulse Ox 97.9 F 74 18 96/56 L 100 05/06/18 12:55 05/06/18 12:55 05/06/18 12:55 05/06/18 12:55 05/06/18 12:55 - Physical Exam General Appearance: Yes: Other (Awake, Alert, oriented x3, non-toxic appearing, no acute distress ) HEENT: positive: EOMI, ERIKA, Normal ENT Inspection, Pharynx Normal. negative: Pharyngeal Erythema, Tonsillar Exudate, Tonsillar Erythema, Nasal Congestion Neck: positive: Trachea midline, Supple. negative: Decreased range of motion, Lymphadenopathy (R), Lymphadenopathy (L) Respiratory/Chest: positive: Lungs Clear, Normal Breath Sounds. negative: Respiratory Distress, Decreased Breath Sounds, Crackles, Rales, Rhonchi, Stridor , Wheezing, Dullness Cardiovascular: positive: Regular Rhythm, Regular Rate, S1, S2. negative: Edema , JVD, Murmur Gastrointestinal/Abdominal: positive: Other (Soft, nontender, nondistended, normoactive bowel sounds, no organomegaly ) Musculoskeletal: positive: Normal Inspection. negative: CVA Tenderness, CVA Tenderness (R), CVA Tenderness (L), Decreased Range of Motion Extremity: positive: Normal Capillary Refill, Normal Inspection, Normal Range of Motion. negative: Coldness, Cyanosis, Delayed Capillary Refill, Pedal Edema , Swelling, Calf Tenderness, Erythema Integumentary: positive: Normal Color, Warm. 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, Fully Oriented, Alert, Normal Mood/ Affect, Normal Response, Motor Strength 5/5 Moderate Sedation - Procedure Monitoring Vital Signs: Procedure Monitoring Vital Signs Temperature 97.9 F 05/06/18 12:55 Pulse Rate 74 05/06/18 12:55 Respiratory Rate 18 05/06/18 12:55 Blood Pressure 96/56 L 05/06/18 12:55 O2 Sat by Pulse Oximetry (%) 100 05/06/18 12:55 ED Treatment Course - LABORATORY CBC & Chemistry Diagram: 05/06/18 14:17 05/06/18 14:17 Medical Decision Making - Medical Decision Making 05/06/18 14:11 Patient is a 22 year old female with no significant PMHx who presented for Lower abdominal pain associated with nausea, vomiting, fatigue, fevers. Differential diagnosis includes but not limited to , gastroenteritis, ovarian cysts, UTI. -Urine HCG -U/A -CBC -CMP -IV NS 05/06/18 16:02 -Patient labs unremarkable -Urine b-hcg positive -B-HCG quantitative ordered -Transvaginal U/S for first trimester ordered 05/06/18 17:00 -Vaginal U/S revealed gestational age of 6 weeks 0 days with left ovarian corpus lutein cyst -U/A pending -Beta Quant pending 05/06/18 17:25 -U/A negative for UTI -Will discharge patient and recommended to buy OTC pills. Also recommended to call OBGYN for follow up appointment this week. *DC/Admit/Observation/Transfer Diagnosis at time of Disposition: Abdominal pain Qualifiers: Abdominal location: lower abdomen, unspecified Qualified Code(s): R10.30 - Lower abdominal pain, unspecified Qualifiers: Weeks of gestation: less than 8 weeks Qualified Code(s): Z3A.01 - Less than 8 weeks gestation of - Discharge Dispostion Disposition: HOME Condition at time of disposition: Stable Decision to Admit order: No - Referrals Referrals: Magdalena Torres MD [Primary Care Provider] - Gabby Godwin MD [Staff Physician] - - Patient Instructions Additional Instructions: -You were seen here for lower abdominal pain, nausea, and fatigue. A test was done and you were found to be 6 weeks . You were given fluid through an IV with relief of symptoms. 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
[2018-05-06] MEDS ORDERED: SODIUM CHLORIDE 0.9% 1000 ML INFUS.BAG IV ONE (14:05)
[2018-05-06 15:02] LABS: ALBUMIN 3.8 g/dl (3.4-5.0); ALK PHOS 40 U/L (45-117); ANION GAP 7 MMOL/L (8-16); BILIRUBIN,TOTAL 0.6 mg/dL (0.2-1); BLOOD UREA NITROGEN 7 mg/dL (7-18); CALCIUM 8.6 mg/dL (8.5-10.1); CHLORIDE 104 mmol/L (98-107); CO2 25 mmol/L (21-32); CREATININE 0.6 mg/dL (0.55-1.3); GLUCOSE,RANDOM 79 mg/dL (74-106); POTASSIUM 4.2 mmol/L (3.5-5.1); SGOT/AST 25 U/L (15-37); SGPT/ALT 26 U/L (13-61); SODIUM 136 mmol/L (136-145); TOT PROT 6.7 g/dl (6.4-8.2)
--- NOTE | 2018-05-06 15:04 | PDOC ---
Attending Attestation - HPI HPI: 05/06/18 15:11 The patient is a 22 year old female with no significant medical history who presents to the emergency department for nonradiating, lower abdominal pain, nausea, fatigue, fever, and vomiting for about 1.5 weeks. Patient reports the pain is intermittent and sharp. She reports a couple of sporadic episodes of NBNB emesis. She denies pain now. She denies any recent episodes of emesis. She denies alleviating or exacerbating factors. Patient is sexually active with one partner. LMP beginning of April The patient denies chills, diarrhea, melena, hematochezia, hematemesis, hematuria, vaginal bleeding or discharge, chest pain, palpitations, dizziness, loss of consciousness. PCP: Dr. Magdalena Olmedo/Dr. Balbuena - Physicial Exam PE: 05/06/18 15:11 Constitutional: Awake, alert, oriented. No acute distress. Head: Normocephalic. Atraumatic Eyes: PERRL. EOMI. Conjunctivae are not pale. ENT: Mucous membranes are moist and intact. Posterior pharynx without exudates or erythema. Uvula midline. Neck: Supple. Full ROM. No lymphadenopathy. Cardiovascular: Regular rate. Regular rhythm. S1, S2 regular. Distal pulses are 2+ and symmetric. Pulmonary/Chest: No evidence of respiratory distress. Clear to auscultation bilaterally No wheezing, rales or rhonchi. Abdominal: Soft and non-distended. There is no tenderness. No rebound, guarding or rigidity. No organomegaly. No palpable masses. Good bowel sounds. Back: No CVA tenderness. Musculoskeletal: No edema. No cyanosis. No clubbing. Full range of motion in all extremities. Nocalf tenderness. Radial/pedal pulses are intact and 2+ bilaterally Skin: Skin is warm and dry. No petechiae. No purpura. Neurological: Alert and oriented to person, place, and time. Cranial nerves II -XII are grossly intact. Normal speech. Strength is grossly symmetric. No sensory deficits. Psychiatric: Good eye contact. Normal interaction, affect and behavior. - Medical Decision Making 05/06/18 15:12 Documentation prepared by Vannesa Mora, acting as general medical practitioner for Sharron Ma DO <Vannesa Mora - Last Filed: 05/06/18 15:11> - Resident Resident Name: Delilah Nasheen - ED Attending Attestation I have performed the following: I have examined & evaluated the patient, The case was reviewed & discussed with the resident, I agree w/resident's findings & plan, Exceptions are as noted - Medical Decision Making 05/06/18 15:03 I, Dr. Sharron Ma, DO, attest that this document has been prepared under my direction and personally reviewed by me in its entirety. I further attest, that it accurately reflects all work, treatment, procedures and medical decision -making performed by me. 05/06/18 15:03 a/p: 22yo female with intermittent episodes of lower abd pain and 2 episodes of n/v last week -nbnb vomitus, no diarrhea -no fevers -pt is sexually active, unsure when her last menstrual cycle occurred -will send labs, hgb, electrolyes, ua, ucg -pt is nontoxic in appearance, no abd pain at this time -no dysuria. no vaginal complaints -will monitor and reassess 05/06/18 15:38 labs reviewed ambulatory in the Ed pending ua, ucg 05/06/18 16:14 +preg test beta pending tvus ordered pt updated on lab results 05/06/18 16:20 Rh + in the past no bleeding <Sharron Ma - Last Filed: 05/06/18 16:42>
[2018-05-06 15:11] LABS: BASO % 0.3 % (0-2.0); EOS % 0.8 % (0-4.5); HEMATOCRIT 40.4 % (32.4-45.2); HEMOGLOBIN 13.3 GM/dL (10.7-15.3); MCH 28.2 pg (25.7-33.7); MEAN CELL VOLUME 85.6 fl (80-96); MEAN PLT VOLUME 9.6 fl (7.5-11.1); MONO % 9.1 % (3.8-10.2); NEUT % 61.8 % (42.8-82.8); PLATELET COUNT 236 K/MM3 (134-434); RBC 4.72 M/mm3 (3.60-5.2); RDW 13.1 % (11.6-15.6); WHITE BLOOD COUNT 6.7 K/mm3 (4.0-10.0)
[2018-05-06 16:13] LABS: URINE APPEARANCE CLEAR; URINE BILIRUBIN NEGATIVE (<2.0 mg/dL); URINE COLOR STRAW; URINE GLUCOSE (UA) NEGATIVE (NEGATIVE); URINE KETONE TRACE (NEGATIVE); URINE LEUK ESTERASE NEGATIVE (NEGATIVE); URINE NITRITE NEGATIVE (NEGATIVE); URINE PROTEIN NEGATIVE (NEGATIVE); URINE UROBILINOGEN NEGATIVE mg/dL (0.2-1.0)
== END 2018-05-06 18:13 | disposition home or self-care (01) ==
LOC: JER 12:54
DX: O26.891 Other specified pregnancy related conditions, first trimester (principal); O34.81 Maternal care for other abnormalities of pelvic organs, first trimester; N83.12 Corpus luteum cyst of left ovary; Z3A.01 Less than 8 weeks gestation of pregnancy
CPT/HCPCS: 36415; 76817-TC; 80053; 81003; 84702; 84703; 85025; 99283-25; J7030

== ENCOUNTER 2018-09-23 16:47 | Emergency (ER) | payer OTHER ==
[2018-09-23 16:59] VITALS: BP 118/71; PULSE 79; TEMP 97.8; BMI 22.9
--- NOTE | 2018-09-23 17:40 | PDOC ---
History of Present Illness - General Chief Complaint: Vaginal Bleeding Stated Complaint: VAGINAL BLEEDING Time Seen by Provider: 09/23/18 16:57 Past History - Past Medical History Allergies/Adverse Reactions: Allergies Allergy/AdvReac Type Severity Reaction Status Date / Time No Known Allergies Allergy Verified 09/23/18 16:49 Home Medications: Ambulatory Orders NK [No Known Home Medication] 01/04/16 COPD: No Other medical history: Plan B this month - Suicide/Smoking/Psychosocial Hx Smoking History: Never smoked Have you smoked in the past 12 months: No Number of Cigarettes Smoked Daily: 2 'Breaking Loose' booklet given: 12/07/16 Hx Alcohol Use: Yes (social) Drug/Substance Use Hx: No Substance Use Type: None *Physical Exam - Vital Signs Last Vital Signs Temp Pulse Resp BP Pulse Ox 97.8 F 79 16 118/71 100 09/23/18 16:52 09/23/18 16:52 09/23/18 16:52 09/23/18 16:52 09/23/18 16:52 *DC/Admit/Observation/Transfer Diagnosis at time of Disposition: Vaginal bleeding - Discharge Dispostion Disposition: HOME Decision to Admit order: No - Referrals Referrals: Magdalena Torres MD [Primary Care Provider] - Gabby Godwin MD [Staff Physician] - - Patient Instructions Printed Discharge Instructions: DI for Vaginal Bleeding Additional Instructions: you were seen for the evaluation of your vaginal bleeding. it was determined that you are not . please follow up with your OBGYN doctor this monday and keep this appointment. please return to the emergency department if you have worsening symptoms or new concerning symptoms such as fevers, chills, uncontrollable nausea and vomiting, and foul smelling vaginal discharge. thank you. - Post Discharge Activity
--- NOTE | 2018-09-23 17:42 | PDOC ---
Attending Attestation - Resident Resident Name: CallyBrent - ED Attending Attestation I have performed the following: I have examined & evaluated the patient, The case was reviewed & discussed with the resident, I agree w/resident's findings & plan, Exceptions are as noted - HPI HPI: 09/23/18 18:41 23 yo female p/w concern of - Physicial Exam PE: 09/23/18 18:42 23 yo female concerned p/w concerns 09/23/18 18:46 wnwd 23 yo female in no acute distress head ncat neck supple lungs cta b/l cvs [id number] abd nontender extremities no edema skin warm and dry neuro axox3,ambulatory - Medical Decision Making 09/23/18 18:48 negative test pt already has an appt with her ob/gyn nurse for IUD insertion this Monday
== END 2018-09-23 19:04 | disposition home or self-care (01) ==
LOC: JER 16:47
DX: N93.9 Abnormal uterine and vaginal bleeding, unspecified (principal)
CPT/HCPCS: 36415; 84702; 99283-25

== ENCOUNTER 2018-11-05 20:25 | Emergency (ER) | payer OTHER ==
[2018-11-05 20:44] VITALS: BMI 21.6
--- NOTE | 2018-11-05 21:55 | PDOC ---
History of Present Illness - General Chief Complaint: Vaginal Bleeding Stated Complaint: ABD PAIN Time Seen by Provider: 11/05/18 21:54 History Source: Patient - History of Present Illness Initial Comments: 11/05/18 22:08 23 year old female with left pelvic pain 5 days spotting on and off since August after a [facility]. patient also c/o of throat pain. + vaginal discharge. denies fever/ chills, urinary symptoms. + unprotected sex with a new partner 3 weeks unsure if exposed to a STI. PMHX: abnormal pap now normal. 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 Past History - Past Medical History Allergies/Adverse Reactions: Allergies Allergy/AdvReac Type Severity Reaction Status Date / Time No Known Allergies Allergy Verified 11/05/18 20:44 Home Medications: Ambulatory Orders Ibuprofen [Ibu] 600 mg PO QID PRN #20 tablet 11/06/18 COPD: No - Reproductive History Therapeutic (s) & number: Yes (1) - Suicide/Smoking/Psychosocial Hx Smoking History: Never smoked Have you smoked in the past 12 months: No Number of Cigarettes Smoked Daily: 2 Information on smoking cessation initiated: No 'Breaking Loose' booklet given: 12/07/16 Hx Alcohol Use: No Drug/Substance Use Hx: No Substance Use Type: None Abd/GI Specific PMHX - Complaint Specific PMHX Colitis: No Diverticulitis: No Gall Bladder Disease: No GERD: No Hepatitis: No Irritable Bowel Synd (IBS): No Pancreatitis: No GI Ulcer Disease: No Review of Systems - Review of Systems Able to Perform ROS?: Yes Is the patient limited [place]er proficient: No Constitutional: No: Symptoms Reported, See HPI, Chills, Diaphoresis, Fever, Loss of Appetite, Malaise, Night Sweats, Weakness, Weight Stable, Unintentional Wgt. Loss, Unexplained wgt Loss, Other HEENTM: Yes: Throat Pain ABD/GI: Yes: Abdominal cramping, Other (vaginal discharge) : No: Symptoms Reported, See HPI, Burning, Dysuria, Discharge, Frequency, Flank Pain, Hematuria, Incontinence, Pain, Urgency, Testicular Mass, Testicular Swelling, Lesions, Testicular Pain, Other *Physical Exam - Vital Signs Last Vital Signs Temp Pulse Resp BP Pulse Ox 98.5 F 100 H 18 115/91 100 11/05/18 20:42 11/05/18 20:42 11/05/18 20:42 11/05/18 20:42 11/05/18 20:42 - Physical Exam General Appearance: Yes: Appropriately Dressed Respiratory/Chest: positive: Lungs Clear, Normal Breath Sounds Female Pelvic Exam: positive: normal external exam, cervical os closed, other ( copious yellow vaginal discharge, left adnexal tenderness) Integumentary: positive: Normal Color, Dry, Warm Neurologic: positive: Fully Oriented, Alert, Normal Mood/Affect Progress Note - Progress Note Progress Note: Vaginal bleeding P: ua Urine culture gc/ chlamydia: pending results. will treat considering vaginal discharge Medical Decision Making - Medical Decision Making 11/06/18 00:12 TVUS : Normal uterus. Normal homogeneous endometrial complex at 6.8 mm. No free fluid. Normal right ovary with positive arterial Doppler blood flow. There is a 1.6 cm x 1.3 cm x 1.4 cm left ovarian cyst with septation. The remainder of the left ovary is normal with positive Doppler blood flow. *DC/Admit/Observation/Transfer Diagnosis at time of Disposition: Pelvic pain, Left ovarian cyst - Discharge Dispostion Disposition: HOME - Prescriptions Prescriptions: Ibuprofen [Ibu] 600 mg PO QID PRN #20 tablet PRN Reason: Pain - Referrals Referrals: Magdalena Torres MD [Primary Care Provider] - - Patient Instructions Printed Discharge Instructions: Ovarian Cyst Additional Instructions: Take ibuprofen every 6 hours as needed for pain. Drink plenty of fluids. 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 - Post Discharge Activity Forms/Work/School Notes: Back to Work
[2018-11-05 23:05] LABS: EPI CELLS 1.5 /HPF (0-5/HPF); HCG,QUALITATIVE URINE Negative; HYALINE CASTS 0 /lpf (0-8); PH,URINE 7.5 (5.0-8.0); URINE APPEARANCE CLEAR; URINE BACTERIA 58.6 /hpf (NEGATIVE); URINE BILIRUBIN NEGATIVE (NEGATIVE); URINE COLOR YELLOW; URINE GLUCOSE (UA) NEGATIVE (NEGATIVE); URINE KETONE NEGATIVE (NEGATIVE); URINE LEUK ESTERASE 2+ (NEGATIVE); URINE NITRITE NEGATIVE (NEGATIVE); URINE PROTEIN NEGATIVE (NEGATIVE); URINE RBC 0 /hpf (0-4); URINE UROBILINOGEN 0.2 mg/dL (0.2-1.0); URINE WBC 1 /hpf (0-5)
[2018-11-05] MEDS ORDERED: AZITHROMYCIN 500 MG TABLET PO ONE (23:30)
[2018-11-06] MEDS ORDERED: AZITHROMYCIN 250 MG TABLET ONE (00:17)
[2018-11-06] MEDS ORDERED: cefTRIAXone SODIUM 1 GM VIAL ONE (00:17)
[2018-11-06 00:58] VITALS: BP 101/66; PULSE 80; TEMP 100.1
== END 2018-11-06 00:59 | disposition home or self-care (01) ==
LOC: JER 20:25
DX: N83.202 Unspecified ovarian cyst, left side (principal)
CPT/HCPCS: 36415; 76830-TC; 81003; 84703; 87070; 87491; 87591; 87880; 96372; 99281-25